=== PATIENT | female | born 1970 | race Caucasian/White ===

== ENCOUNTER → 2017-02-14 08:57 | Outpatient (CLI) | payer MEDICAID ==
[2014-06-12 06:33] VITALS: BMI 27.5
[~2017-02-14 08:57] MED LIST: ALENDRONATE SOD70 MG PO; ASCORBIC ACID500 MG PO; BIOTIN5 MG; CHLORZOXAZONE; CLARITIN 10 MG10 MG PO; DILANTIN100 MG PO; HYDROCODON-ACE1 EAC7 PO; HYDROXYZINE HCL10 MG PO; MULTIPLE VITAMI1 TA1 PO; SLEEP AID; STOOL SOFTENER240 MG PO; VALIUM5 MG PO; VITAMIN B-12500 MC1 PO; VITAMIN D31000 UNIT PO; ZYRTEC10 MG PO
== END | disposition home or self-care (01) ==
LOC: D.LAB 08:57
DX: G40.802 Other epilepsy, not intractable, without status epilepticus (principal)

== ENCOUNTER 2020-01-22 17:49 | Emergency (ER) | payer MEDICAID ==
[~2020-01-22] VITALS: Ht 157.5 cm; Wt 62.7 kg
[2020-01-22 17:59] VITALS: Ht 157.5 cm; Wt 62.7 kg
[2020-01-22] MEDS ORDERED: NEURONTIN 300300 MG PO (18:00)
[2020-01-22] MEDS ORDERED: TRAZODONE HCL150 MG PO (18:00)
[2020-01-22] MEDS ORDERED: KEPPRA250 MG PO (18:00)
[2020-01-22] MEDS ORDERED: CYCLOBENZAPRINE10 MG PO (19:41)
[2020-01-22 20:28] VITALS: BP 125/78
== END 2020-01-22 20:29 | disposition home or self-care (01) ==
LOC: D.ER 17:49
DX: R51 Headache (principal); M54.2 Cervicalgia; M54.5 Low back pain; M54.6 Pain in thoracic spine; R07.9 Chest pain, unspecified; M79.605 Pain in left leg; M79.604 Pain in right leg; V89.2XXA Person injured in unspecified motor-vehicle accident, traffic, initial encounter; Y93.9 Activity, unspecified; Y92.9 Unspecified place or not applicable